=== PATIENT | female | born 1955 | race Caucasian/White ===

== ENCOUNTER 2018-09-17 07:13 | Day surgery (SDC) | payer OTHER ==
[~2018-09-17] VITALS: Ht 157.5 cm; Wt 88.0 kg
[2018-09-17] MEDS ORDERED: LIDOCAINE 2% 100 MG/5 ML UJET TP ONE (10:48)
[2018-09-17] MEDS ORDERED: fentaNYL 0.05 MG/ML VIAL ONE (10:48)
[2018-09-17] MEDS ORDERED: MIDAZOLAM 2 MG/2 ML VIAL ONE (10:48)
[2018-09-17] MEDS ORDERED: fentaNYL 0.05 MG/ML VIAL IVP ONE (13:10)
[2018-09-17] MEDS ORDERED: MIDAZOLAM 2 MG/2 ML VIAL IVP ONE (13:10)
== END 2018-09-17 13:05 | disposition home or self-care (01) ==
LOC: MDS 07:13 → MMU 07:23 → MDS 13:05
PROVIDERS: ATTEND Internal Medicine Gastroenterology
DX: Z12.11 Encounter for screening for malignant neoplasm of colon (principal); K57.30 Diverticulosis of large intestine without perforation or abscess without bleeding; K21.0 Gastro-esophageal reflux disease with esophagitis; K22.70 Barrett's esophagus without dysplasia; R68.89 Other general symptoms and signs; K63.89 Other specified diseases of intestine; I10 Essential (primary) hypertension; E11.9 Type 2 diabetes mellitus without complications; Z90.710 Acquired absence of both cervix and uterus; Z98.890 Other specified postprocedural states
CPT/HCPCS: 36415; 43239; 45378; 86677; 88305; 88313; J2250; J3010